=== PATIENT | male | born 1975 | race Caucasian/White ===

== ENCOUNTER → 2021-09-28 | Outpatient (CLI) | payer BC, OTHER ==
--- NOTE | 2021-09-28 16:55 | BD ---
EXAMINATION TYPE: Axial Bone Density DATE OF EXAM: 09/28/2021 CLINICAL HISTORY: 46 year old Male. ICD-10 CODE: Q98.4 Klinefelter syndrome, unspecified Height: 74 Weight: 172.8 FRAX RISK QUESTIONS: Alcohol (3 or more units per day): no Family History (Parent hip fracture): no Glucocorticoids (More than 3mos): no (Ex: prednisone, prednisolone, methylprednisolone, dexamethasone, and hydrocortisone). History of Fracture in Adulthood: yes Secondary Osteoporosis: 1. Type 1 Diabetes: no 2. Hyperthyroidism: no 3. Menopause before 45: N/A 4. Malnutrition: no 5. Chronic liver disease: no Rheumatoid Arthritis: no Current Tobacco Use: yes RISK FACTORS HISTORY OF: Surgery to Spine/Hip(right/left)/Wrist (right/left): no Family History of Osteoporosis: no Active: yes Diet low in dairy products/other sources of calcium: yes Lost more than 2 inches in height since high school: no MEDICATIONS: Additional History: EXAM MEASUREMENTS: Bone mineral densitometry was performed using the [employer] System. Bone mineral density as measured about the Lumbar spine is: ----- L1-L4(G/cm2): 1.175 T Score Values are as follows: ----- L1: -1.2 ----- L2: 0.6 ----- L3: 1.3 ----- L4: -0.9 ----- L1-L4: 0.0 Bone mineral density : BASELINE Bone mineral density about the R hip (g/cm2): 0.879 Bone mineral density about the L hip (g/cm2): 0.899 T Score values are as follows: -----R Neck: -1.1 -----L Neck: -1.0 -----R Total: -1.2 -----L Total: -1.0 Bone mineral density : BASELINE FRAX%s: The graph provided illustrates a 4.9% chance for a major osteoporotic fx and a 0.7% chance fo r the hips probability for fx in 10 years time. IMPRESSION: Z scores are utilized due to the patient being a 46-year-old male. Z score values > -2.0 indicate juliana t bone mineral density is within the expected range for patient's age.
== END | disposition home or self-care (01) ==
LOC: RADBDWWP 09:58
PROVIDERS: ATTEND Family Medicine
DX: Q98.4 Klinefelter syndrome, unspecified (principal); M85.89 Other specified disorders of bone density and structure, multiple sites
CPT/HCPCS: 77080

== ENCOUNTER 2022-08-04 21:49 | Emergency (ER) | payer BC, OTHER ==
[2022-08-04 22:00] VITALS: TEMP 98.5
[2022-08-04] MEDS ORDERED: MORPHINE SULFATE 4 MG/ML SYRINGE IV STA (22:40)
[2022-08-04] MEDS ORDERED: SODIUM CHLORIDE 0.9% 500 ML 500 ML IV STA (22:40)
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
[2022-08-04 23:36] LABS: ALT 24 U/L (4-49); AST 28 U/L (17-59); African American GFR (CKD) >90 (>60 ml/min/1.73 sqM); Albumin 3.9 g/dL (3.5-5.0); Alcohol 73 mg/dL; Alkaline Phosphatase 88 U/L (38-126); Anion Gap 10 mmol/L; Blood Urea Nitrogen 15 mg/dL (9-20); Calcium 8.9 mg/dL (8.4-10.2); Carbon Dioxide 27 mmol/L (22-30); Chloride 105 mmol/L (98-107); Glucose 93 mg/dL (74-99); Non-African American GFR(CKD) >90 (>60 ml/min/1.73 sqM); Potassium 3.6 mmol/L (3.5-5.1); Sodium 142 mmol/L (137-145); Total Bilirubin 0.2 mg/dL (0.2-1.3); Total Protein 6.7 g/dL (6.3-8.2)
[2022-08-04 23:39] LABS: Appearance,Urine Clear (Clear); Basophils # (A) 0.1 k/uL (0-0.2); Basophils % (A) 0 %; Bilirubin,Urine Negative (Negative); Blood,Urine Negative (Negative); Color,Urine Light Yellow; Eosinophils # (A) 0.2 k/uL (0-0.7); Eosinophils % (A) 1 %; Glucose,Urine (UA) Negative (Negative); HCT 40.8 % (39.0-53.0); Ketones,Urine Negative (Negative); Leukocyte Esterase,Urine Negative (Negative); Lymphocytes # (A) 1.9 k/uL (1.0-4.8); Lymphocytes % (A) 12 %; MCH 31.1 pg (25.0-35.0); MCHC 34.3 g/dL (31.0-37.0); MCV 90.7 fL (80.0-100.0); Monocytes # (A) 0.7 k/uL (0-1.0); Monocytes % (A) 5 %; Neutrophils # (A) 12.9 k/uL (1.3-7.7); Neutrophils % (A) 81 %; Nitrite,Urine Negative (Negative); Platelet Count 285 k/uL (150-450); Protein,Urine Negative (Negative); RDW 13.7 % (11.5-15.5); Specific Gravity,Urine 1.008 (1.001-1.035); Urobilinogen,Urine <2.0 mg/dL (<2.0)
--- NOTE | 2022-08-05 00:21 | XR ---
EXAM: XR Chest, 1 View CLINICAL HISTORY: ITS.REASON XR Reason: fall injury TECHNIQUE: Frontal view of the chest. COMPARISON: No previous studies. FINDINGS: Lungs: Unremarkable. No consolidative change. Pleural space: Unremarkable. No pneumothorax. No pleural effusions. Heart: Unremarkable. No cardiomegaly. Mediastinum: Cardiomediastinal silhouette unremarkable. Bones/joints: Dextroscoliosis of the thoracic spine. Osseous structures and soft tissues are unremarkable. Other findings: Hypoaeration. IMPRESSION: 1. No active disease. 2. No consolidative change. 3. No pleural effusions. 4. No pneumothorax.
--- NOTE | 2022-08-05 00:23 | XR ---
EXAM: XR Right Shoulder Complete, 2 or More Views CLINICAL HISTORY: ITS.REASON XR Reason: fall injury TECHNIQUE: Two or more views of the right shoulder. COMPARISON: No previous studies. FINDINGS: Bones/joints: Right acromioclavicular joint is unremarkable. Right shoulder joint is intact. No acute fracture, dislocation, or destructive process. Soft tissues: The soft tissues and regional ribs are unremarkable. IMPRESSION: 1. No acute fracture or dislocation. 2. If there is concern for rotator cuff tendinopathy, MRI imaging should be performed.
--- NOTE | 2022-08-05 00:30 | CT ---
EXAM: CT Head Without Intravenous Contrast CLINICAL HISTORY: ITS.REASON CT Reason: fall injury TECHNIQUE: Axial computed tomography images of the head/brain without intravenous contrast. CTDI is 45.2 mGy and DLP is 1093.5 mGy-cm. This CT exam was performed using one or more of the following dose reduction techniques: automated exposure control, adjustment of the mA and/or kV according to patient size, and/or use of iterative reconstruction technique. COMPARISON: No previous studies. FINDINGS: Brain: Unremarkable. No hemorrhage. No significant white matter disease. No abnormal extra-axial collection is noted. Midline shift: Midline anatomy is unremarkable. Ventricles: The ventricular system is age appropriate. Bones/joints: The calvarium is within normal limits. No acute fracture. Soft tissues: Unremarkable. Sinuses: Mild to moderate chronic right maxillary sinusitis. Visualized sinuses are unremarkable. Mastoid air cells: Mastoid air cells are well pneumatized. IMPRESSION: 1. No acute intracranial pathology is noted. 2. If there is concern for etiology such as early acute lacunar infarcts, MRI imaging of the brain with diffusion-weighted sequences should be performed. EXAM: CT Cervical Spine Without Intravenous Contrast CLINICAL HISTORY: ITS.REASON CT Reason: fall injury TECHNIQUE: Axial computed tomography images of the cervical spine without intravenous contrast. CTDI is 11.6 mGy and DLP is 359.3 mGy-cm. This CT exam was performed using one or more of the following dose reduction techniques: automated exposure control, adjustment of the mA and/or kV according to patient size, and/or use of iterative reconstruction technique. COMPARISON: No previous studies. FINDINGS: Vertebrae: Dextroscoliosis. There is straightening and reversal of the curvature of the cervical spine suggestive of muscle spasm. Cervical and visualized thoracic vertebral bodies are maintained in height. There is are normal relationship of C1 and C2. Transaxial images of the cervical spine reveals mild to moderate posterior facet hypertrophy. No acute fracture. Discs/spinal canal/neural foramina: Mild degenerative disc disease. No spinal canal stenosis. Other bones/joints: There is a nondisplaced fracture of the medial aspect of the left occipital condyle seen on series 303 image 38. Soft tissues: Paraspinal and regional soft tissues are unremarkable. Lung apices: COPD. IMPRESSION: 1. There is an acute nondisplaced fracture of the medial aspect the left occipital condyle seen on series 303 image 38. 2. Normal alignment of the cervical spine. 3. Degenerative disc disease. 4. No acute injury to the cervical spine. 5. COPD. <MYCVCSECTION> Communications: 08/05/22 00:32 Call Doctor Regarding Above results, called Dr. Bryant on 08/05 00:31 (-04:00)
[2022-08-05] MEDS ORDERED: HYDROmorphone 1 MG/ML 1 ML SYRINGE IVP STA ×2 (01:18→03:36)
[2022-08-05 02:47] VITALS: RESP 16
[2022-08-05 04:23] VITALS: BP 157/79; PULSE 77
== END 2022-08-05 04:44 | disposition other institution (70) ==
LOC: EC 21:49
DX: S02.11BA Type I occipital condyle fracture, left side, initial encounter for closed fracture (principal); S01.111A Laceration without foreign body of right eyelid and periocular area, initial encounter; J45.909 Unspecified asthma, uncomplicated; F17.200 Nicotine dependence, unspecified, uncomplicated; Z20.822 Contact with and (suspected) exposure to COVID-19; V29.99XA Rider (driver) (passenger) of other motorcycle injured in unspecified traffic accident, initial encounter; Y92.410 Unspecified street and highway as the place of occurrence of the external cause
CPT/HCPCS: 36415; 93005; 80053; 85025; 81003; 80320; 87636; 73030; 71045; 72125; 70450; 99291; 96374; 96375; 96376; J2270; J1170

== ENCOUNTER → 2023-02-18 | Outpatient (CLI) | payer BC, OTHER ==
--- NOTE | 2023-02-18 12:00 | P.SLEEP ---
History of Present Illness DATE: 02/18/2023 CONSULTATION/NEW PATIENT EVALUATION HISTORY OF PRESENT ILLNESS/SLEEP-WAKE EVALUATION: 48-year-old gentleman had been evaluated in the sleep center for possible obstructive sleep apnea hypopnea syndrome and significant excessive daytime sleepiness. Sleep study 12 years ago was borderline according to patient. SLEEP SCHEDULE: Usually sleep schedule from 11 PM to 67 AM 7 days a week. FALLING ASLEEP: No problems with falling asleep. DURING SLEEP: Patient has loud snoring, wakes up from sleep 2 times with one episode of nocturia No history of hypnogogical hallucinations, sleep paralysis, or cataplexy. Positive history of restless leg symptoms, sleep talking and grinding teeth DURING THE DAY/WAKE STATE: In the morning patient wake up tired, has difficulties to pay attention, falling asleep during the day, has problems with memory, concentration, depression, sexual dysfunction. Jefferson sleepiness scale is in very high range of 17. Patient takes up to 4 naps during the day. PAST MEDICAL HISTORY: Klinefelter syndrome, asthma, arthritis, depression. PAST SURGICAL HISTORY: Bilateral treatment of carpal tunnel syndrome, right ACL surgical treatment. MEDICATIONS: Of Abilify 2 mg once a day, Lamictal 100 mg 2 tablets once a day, venlafaxine 100 mg once a day, vitamin B12, testosterone once a week, epi pen. SOCIAL HISTORY: Positive history of smoking for about 20 years slightly less than 1 pack a day, quit 5 months ago, alcohol consumption occasional. FAMILY HISTORY: Hyperlipidemia. REVIEW OF SYSTEMS: Loud snoring, multiple awakenings from sleep, significant excessive daytime sleepiness. No fevers. No double vision. No recent chest pain. No shortness of breath. No abdominal pain. No bleeding episodes. No blood in urine. No seizure episodes. PHYSICAL EXAMINATION: GENERAL: A pleasant patient without any distress. VITAL SIGNS: BP 148/90, HR 78, RR 12, weight 213.8 pounds, height 6 foot three quarters inches, body mass index 28.4. HEENT: PERRLA, EOMI. Evaluation of oropharynx showed tongue protrudes midline, low position of soft palate Mallampati 3. NECK: Supple. No JVD. Thyroid is not palpable. 15.5 inches in circumference. LUNGS: Clear to percussion and to auscultation. Good air exchange. No wheezing or rhonchi. HEART: S1, S2 regular. No murmurs, gallops or rubs. ABDOMEN: Soft and nontender. Bowel sounds are present. No organomegaly appreciated. EXTREMITIES: No clubbing or cyanosis. MOLDER FLOOR: Awake, alert, and oriented x3. Cranial nerves 2 to 7 intact. There is no fasciculation or atrophy noted. No focal deficits observed. ASSESSMENT: 1. Loud snoring, awakenings from sleep, sleepiness during the day, low position of soft palate Mallampati 3. Possible obstructive sleep apnea hypopnea syndrome. 2. Significant excessive daytime sleepiness with Jefferson Sleepiness Scale 17 dictated necessity to include narcolepsy and idiopathic hypersomnia in differential diagnosis. 3. Klinefelter syndrome. 4. Asthma. 5 arthritis. 6 . Depression. 7. ALLERGY. PLAN: 1. Home sleep apnea test for evaluation of patient's breathing during sleep. Multiple sleep latency test if sleep study will be negative for obstructive sleep apnea hypopnea syndrome. 2. Following plan after reading sleep study. 3. Preferable position during sleep on the side. 4. No driving if patient feels any sleepiness. Patient is aware of civil and criminal liability for unsafe driving. 5. Sleep hygiene with regular sleep time for at least 7.5-8 hours. Thank you very much for referring this patient for consultation. Sincerely, Praveen Guerra MD, PhD, FAASM. Diplomat of [employer], Sleep Medicine Board by [employer] [facility] [place] Past Medical History Past Medical History: Asthma Additional Past Medical History / Comment(s): ADHD History of Any Multi-Drug Resistant Organisms: None Reported Past Surgical History: Unable to Obtain Past Psychological History: Bipolar, Depression Smoking Status: Current every day smoker Past Alcohol Use History: Abuse Medications and Allergies Allergies Allergy/AdvReac Type Severity Reaction Status Date / Time No Known Allergies Allergy Verified 08/04/22 22:43 Sleep Note - Sleep Note Sleep Note: Temperature: Pulse Rate: Respiratory Rate: Blood Pressure: SpO2: Height: Weight: BMI: Neck Circumference:
== END ==
LOC: 3 N SLEEP 10:48
PROVIDERS: ATTEND Internal Medicine
DX: R06.83 Snoring (principal); Q98.4 Klinefelter syndrome, unspecified; J45.909 Unspecified asthma, uncomplicated; F32.A Depression, unspecified; M19.90 Unspecified osteoarthritis, unspecified site; Z87.891 Personal history of nicotine dependence
CPT/HCPCS: 99211

== ENCOUNTER → 2023-03-11 | Outpatient (CLI) | payer BC, OTHER ==
--- NOTE | 2023-03-13 12:31 | P.PCN ---
Description of Procedure: CLINICAL: A home sleep apnea test has been done for confirmation of possible obstructive sleep apnea-hypopnea syndrome. DESCRIPTION OF PROCEDURE: RESULTS: Recording time was 7 hours 14 minutes. Evaluation time was 7 hours 2 minutes. Evaluation time is sufficient for making conclusion about results of the test. Raw data of sleep recording has been reviewed and is adequate. Respiratory channel showed 1 apneas and 93 hypopneas. Apnea-hypopnea index was 13.4 per hour. Pulse rate in the range between minimum 52, maximum 121, average 69 by computer calculation. Lowest desaturation was 82%. IMPRESSION: 1. Obstructive Sleep Apnea Hypopnea Syndrome with symptoms of significant excessive daytime sleepiness [place] sleepiness scale is 17. Please see other impressions from consultation. PLAN: 1. The patient will be started on auto-PAP treatment for correction of respiratory abnormallities during sleep. 2. I will see patient for follow up visit to discuss results of the test, evaluate clinical response on treatment with PAP therapy and make any necessary adjustments related to mask fitting, pressure, and humidification. 3. Watching weight. 4. Sleep hygiene with regular time in bed for at least 8 hours. 5. No driving if feeling any sleepiness. Thank you very much for allowing me to participate in the management of your patient. Sincerely, Praveen Guerra MD, PhD, FAASM Diplomat of [place] [employer] Sleep Medicine Board of [place] of [employer] Medicine House Player of [facility] [place]
== END ==
LOC: 3 N SLEEP 10:45
PROVIDERS: ATTEND Internal Medicine
DX: G47.33 Obstructive sleep apnea (adult) (pediatric) (principal); G47.10 Hypersomnia, unspecified; Z99.89 Dependence on other enabling machines and devices

== ENCOUNTER → 2023-07-03 | Outpatient (CLI) | payer BC, OTHER ==
[2023-07-03 16:06] VITALS: BP 144/80; PULSE 75; RESP 16
--- NOTE | 2023-07-03 17:10 | P.PN ---
Subjective DATE: 07/03/2023 FOLLOW UP VISIT. Patient with obstructive sleep apnea hypopnea syndrome return to sleep center for follow-up visit. Recently patient had sleep study which documented obstructive sleep apnea hypopnea syndrome. Patient was initiated on PAP therapy and today is first visit after treatment was started. Patient was able to use PAP equipment every night for the whole night. The patient does not have significant problems with the mask, PAP pressure and humidification. [place] sleepiness scale is in very high range of 20. I checked information from PAP unit. PAP unit pressure 5-14, average 11.1 cm H2O. Usage is 77% and 57% for more then 4 hours, average 5 hours per night. Leak is 4.1 l/m, which is in acceptable range. Apnea Hypopnea Index is 2.2, which is normal. MEDICATIONS:1. Venlafaxine 2. Abilify 2 mg once a day 3. Lamictal 100 mg once a day 4. Pepcid 20 mg once a day 5. Prednisone 10 mg once a day 6. Testosterone 100 mg once a week During physical exam: GENERAL: A pleasant patient without any distress. VITAL SIGNS: Please see below. HEENT: PERRLA, EOMI.low position of soft palate, [place] 3. NECK: Supple. No JVD. LUNGS: Clear to percussion and to auscultation. Good air exchange. No wheezing or rhonchi. HEART: S1, S2 regular. ABDOMEN: Soft and nontender.[] EXTREMITIES: No clubbing or cyanosis. RENDERING EQUIPMENT TENDER: Awake, alert, and oriented x3. No focal deficit. I teached patient about position of CPAP unit and adjustments of humidity and temperature in the tube. Impressions: 1. Obstructive sleep apnea-hypopnea syndrome. Patient demonstrated borderline compliance with treatment, benefiting from treatment. 2. Patient continued to have sleepiness during the day, but sleep time at night slightly short. 3. Klinefelter syndrome. 4. Asthma. 5. Depression. 6. Arthritis. 7. Allergy. Plan: 1. Continue using PAP equipment every night for the whole night. 2. To change air filter at least 1-2 times per month. 3. PAP unit should stay lower then position of the head. 4. Advised patient to remove all remaining water from humidifier canister daily and make it dry after each usage. Refill canister with fresh distilled water before each usage. 5. Sleep hygiene with regular time in bed for at least 8 hours. 6. Precautions related to driving. No driving if feel any sleepiness. 7. I will maintain prescription for PAP supplies including mask, tube, filters. 8. Follow up visit in 4 months or earlier if patient has any problems. 9. Watching weight. 10. We will consider multiple sleep latency test, if no improvements related to alertness while patient increased time in bed to 7.5 hours Thank you very much for allowing me to participate in the management of your patient. Praveen Guerra MD, PhD, FAASM. Diplomat of [place] [employer], Sleep Medicine Board by [place] [employer] It Support Consultant of [facility] [place] Objective - Vital Signs Vital signs: Vital Signs Temp Pulse 75 07/03/23 16:02 Resp 16 07/03/23 16:02 BP 144/80 07/03/23 16:02 Pulse Ox 97 07/03/23 16:02 FiO2
== END ==
LOC: 3 N SLEEP 15:31
PROVIDERS: ATTEND Internal Medicine
DX: G47.33 Obstructive sleep apnea (adult) (pediatric) (principal); G47.10 Hypersomnia, unspecified; Q98.4 Klinefelter syndrome, unspecified; J45.909 Unspecified asthma, uncomplicated; F32.A Depression, unspecified; M19.90 Unspecified osteoarthritis, unspecified site; Z91.09 Other allergy status, other than to drugs and biological substances; Z99.89 Dependence on other enabling machines and devices; Z79.899 Other long term (current) drug therapy
CPT/HCPCS: 99212

== ENCOUNTER 2023-11-17 11:47 | Emergency (ER) | payer BC, OTHER ==
--- NOTE | 2023-11-17 12:05 | ED ---
Extremity Problem HPI - General Chief complaint: Extremity Problem,Nontraumatic Stated complaint: R ankle swelling/pain Time Seen by Provider: 11/17/23 12:01 Source: patient, RN notes reviewed Mode of arrival: ambulatory Limitations: no limitations - History of Present Illness Initial comments: 48-year-old male presents emergency department chief complaint of right lower extremity swelling over the past few weeks. Patient states that he had an ultrasound completed outpatient last week that was negative for a DVT of the right lower extremity. Previous ACL tear repair approximately 2 years ago on the right knee. Patient is ambulatory and is being worked up outpatient for lower extremity swelling. Was informed by his PCP juliana the is scheudled to have an EEG and EKG completed. He was prescribed Lasix on that was sent to [facility] to the rehabilitation center that he has at. Patient is concerned that he has not been on his medications yet and is requesting refills of his medications he was able to take him back to his rehabilitation center - Related Data Home Medications Medication Instructions Recorded Confirmed ARIPiprazole [Abilify] 2 mg PO DAILY 07/03/23 07/03/23 Famotidine [Pepcid] 20 mg PO BID 07/03/23 07/03/23 Testosterone Enanthate [Xyosted] 100 mg SQ WEEKLY 07/03/23 07/03/23 Venlafaxine HCl ER [Effexor Xr] 150 mg PO DAILY 07/03/23 07/03/23 lamoTRIgine [LaMICtal] 100 mg PO DAILY 07/03/23 07/03/23 predniSONE 10 mg PO DAILY 07/03/23 07/03/23 Previous Rx's Medication Instructions Recorded Furosemide [Lasix] 20 mg PO DAILY 7 Days #7 tab 11/17/23 Allergies Allergy/AdvReac Type Severity Reaction Status Date / Time No Known Allergies Allergy Verified 08/04/22 22:43 Review of Systems ROS Statement: Those systems with pertinent positive or pertinent negative responses have been documented in the HPI. ROS Other: All systems not noted in ROS Statement are negative. Past Medical History Past Medical History: Asthma, GERD/Reflux Additional Past Medical History / Comment(s): ADHD History of Any Multi-Drug Resistant Organisms: None Reported Past Surgical History: Unable to Obtain Past Psychological History: Bipolar, Depression Smoking Status: Vaper Past Alcohol Use History: None Reported Past Drug Use History: None Reported General Exam - General Exam Comments Initial Comments: Visual Physical Exam Vital signs reviewed General: Well-appearing, nontoxic, no acute distress. Head: Normocephalic, atraumatic Eyes: PERRLA, EOMI ENT: Airway patent Chest: Nonlabored breathing Skin: No visual rash, normal skin tone Neuro: Alert and oriented 3 Musculoskeletal: No gross abnormalities Limitations: no limitations General appearance: alert, in no apparent distress Head exam: Present: atraumatic, normocephalic, normal inspection ENT exam: Present: normal exam, mucous membranes moist Respiratory exam: Present: normal lung sounds bilaterally. Absent: respiratory distress, wheezes, rales, rhonchi, stridor Cardiovascular Exam: Present: regular rate, normal rhythm, normal heart sounds. Absent: systolic murmur, diastolic murmur, rubs, gallop, clicks GI/Abdominal exam: Present: soft, normal bowel sounds. Absent: distended, tenderness, guarding, rebound, rigid Right Lower Leg exam: Present: full ROM, swelling. Absent: tenderness, abrasion, laceration Foot/Toe exam: Present: normal inspection, full ROM. Absent: tenderness, swelling, abrasion Neurovascular tendon exam: Absent: no vascular compromise, abnormal cap refill Gait: observed and normal Back exam: Present: normal inspection Skin exam: Present: warm, dry, intact, normal color. Absent: rash Course Vital Signs 11/17/23 11/17/23 11/17/23 11:52 14:03 14:29 Temperature 97.8 F 98.1 F 98.1 F Pulse Rate 87 69 68 Respiratory 16 18 18 Rate Blood Pressure 148/92 147/91 145/90 O2 Sat by Pulse 99 99 99 Oximetry Medical Decision Making - Medical Decision Making Was pt. sent in by a medical professional or institution (, PA, CHILD CENTER ASSISTANT, urgent care, hospital, or custodial...) When possible be specific @ -No Did you speak to anyone other than the patient for history (EMS, parent, family, police, friend...)? What history was obtained from this source @ -I spoke to the patient's at bedside states the patient was prescribed diuretic therapy. From a care provider apparently has been unable to start this medication due to the prescription being sent to [facility] that is a send out Did you review nursing and triage notes (agree or disagree)? Why? @ -I reviewed and agree with nursing and triage notes Were old charts reviewed (outside hosp., previous admission, EMS record, old EKG, old radiological studies, urgent care reports/EKG's, custodial records)? Report findings @ -No old charts were reviewed Differential Diagnosis (chest pain, altered mental status, abdominal pain women, abdominal pain men, vaginal bleeding, weakness, fever, dyspnea, syncope, headache, dizziness, GI bleed, back pain, seizure, CVA, palpatations, mental health, musculoskeletal)? @ -Differential Musculoskeletal Muscular strain, contusion, ligament sprain, fracture, arthritis, septic arthritis, bursitis, cellulitis, muscle spasm, nerve compression, DVT, arterial occlusion, herpes zoster, electrolyte abnormality, tumor.... This is not meant to be in all inclusive list EKG interpreted by me (3pts min.). @ -Completed at 1306 sinus rhythm with a ventricular rate of 66, parable 159, QTc 363. No acute signs of ischemia. X-rays interpreted by me (1pt min.). @ -None done CT interpreted by me (1pt min.). @ -None done U/S interpreted by me (1pt. min.). @ -None done What testing was considered but not performed or refused? (CT, X-rays, U/S, labs)? Why? @ -Ultrasound x-rays were considered but deferred. Patient had a recent duplex ultrasound of the right lower extremity that was negative for DVT therefore ultrasound is deferred at this time. Additionally physical examination there is minimal clinical concern for osseous abnormality as patient has extremity swelling and no evidence of recent trauma or injuries therefore there is minimal clinical concern for bony abnormality. Patient agree with deferring x-rays at this time. What meds were considered but not given or refused? Why? @ -None Did you discuss the management of the patient with other professionals (professionals i.e. Dr., PA, CHILD CENTER ASSISTANT, lab, RT, psych nurse, home health care social worker, commercial loan processor, teacher, operational intelligence officer, continuous pillowcase cutter)? Give summary @ -No Was smoking cessation discussed for >3mins.? @ -No Was critical care preformed (if so, how long)? @ -No Were there social determinants of health that impacted care today? How? (Homelessness, low income, unemployed, alcoholism, drug addiction, transportation, low edu. Level, literacy, decrease access to med. care, halfway, rehab)? @ -No Was there de-escalation of care discussed even if they declined (Discuss DNR or withdrawal of care, Hospice)? DNR status @ -No What co-morbidities impacted this encounter? (DM, HTN, Smoking, COPD, CAD, Cancer, CVA, ARF, Chemo, Hep., AIDS, mental health diagnosis, sleep apnea, morbid obesity)? @ -None Was patient admitted / discharged? Hospital course, mention meds given and route, prescriptions, significant lab abnormalities, going to OR and other pertinent info. @ -Discharge. 48-year-old male with right lower extremity swelling. On physical examination patient is resting comfortably no signs of acute distress. EKG reveals sinus rhythm. There is edema to the right lower extremity that is nonpitting, patient is neurovascularly intact before range of motion. X-rays and ultrasound deferred at this time. Patient will be dose of diuretics emergency department and prescription sent to [facility] pharmacy that he is able to clam picker and bring with him to rehabilitation center. Patient does have appointment scheduled with primary care provider within the next few weeks for further evaluation and ongoing treatment of right lower extremity edema. All questions answered at bedside and strict return parameters sonja with the patient he is verbalized understanding. Discussed with Dr. Marino Acute, or Chronic, or Acute on Chronic? @ -Acute Uncomplicated (without systemic symptoms) or Complicated (systemic symptoms)? @ -Uncomplicated Side effects of treatment? @ -None Exacerbation, Progression, or Severe Exacerbation] @ -No Poses a threat to life or bodily function? @ -No Disposition Clinical Impression: Edema, Swelling of lower extremity Disposition: HOME SELF-CARE Condition: Good Instructions (If sedation given, give patient instructions): Edema (ED) Additional Instructions: Return emergency room for any new or worsening symptoms. Complete full course of diuretic as prescribed. Recommend that you follow-up next week with your primary care provider for further evaluation. Continue to wear compression stockings. Prescriptions: Furosemide [Lasix] 20 mg PO DAILY 7 Days #7 tab Is patient prescribed a controlled substance at d/c from ED?: No Referrals: Karina Sweeney III, MD [Primary Care Provider] - 1-2 days Time of Disposition: 14:23
[2023-11-17 14:04] VITALS: RESP 18; TEMP 98.1
[2023-11-17] MEDS: FUROSEMIDE 20 MG TAB PO STA (14:26)
[2023-11-17 14:30] VITALS: BP 145/90; PULSE 68
== END 2023-11-17 14:44 | disposition home or self-care (01) ==
LOC: EC 11:47
DX: R22.41 Localized swelling, mass and lump, right lower limb (principal)
CPT/HCPCS: 93005; 99284

== ENCOUNTER 2024-02-02 09:51 | Emergency (ER) | payer BC, OTHER ==
[2024-02-02 10:02] VITALS: TEMP 98.8
--- NOTE | 2024-02-02 10:15 | ED ---
General Adult HPI - General Chief complaint: Abdominal Pain Stated complaint: Abdominal Pain Time Seen by Provider: 02/02/24 10:00 Source: patient, RN notes reviewed, old records reviewed Mode of arrival: ambulatory Limitations: no limitations - History of Present Illness Initial comments: This is a 49-year-old male who presents to the emergency department complaining of right-sided abdominal pain. Patient states he had a sharp pain last night and this morning he woke up and has a pain constant on the right side. The initial sharp pain was just really quick and then it went away but now the pain is there and is constant he does think coughing moving or driving in the car hitting bumps made it much worse. Patient has any nausea vomiting diarrhea. Patient has any fever chills. Patient has any previous abdominal surgery. Patient does have a history of Klinefelter syndrome. Patient denies any other symptoms at this time - Related Data Home Medications Medication Instructions Recorded Confirmed ARIPiprazole [Abilify] 2 mg PO DAILY 07/03/23 07/03/23 Famotidine [Pepcid] 20 mg PO BID 07/03/23 07/03/23 Testosterone Enanthate [Xyosted] 100 mg SQ WEEKLY 07/03/23 07/03/23 Venlafaxine HCl ER [Effexor Xr] 150 mg PO DAILY 07/03/23 07/03/23 lamoTRIgine [LaMICtal] 100 mg PO DAILY 07/03/23 07/03/23 predniSONE 10 mg PO DAILY 07/03/23 07/03/23 Previous Rx's Medication Instructions Recorded Furosemide [Lasix] 20 mg PO DAILY 7 Days #7 tab 11/17/23 Allergies Allergy/AdvReac Type Severity Reaction Status Date / Time No Known Allergies Allergy Verified 02/02/24 09:58 Review of Systems ROS Statement: Those systems with pertinent positive or pertinent negative responses have been documented in the HPI. ROS Other: All systems not noted in ROS Statement are negative. Past Medical History Past Medical History: Asthma, GERD/Reflux Additional Past Medical History / Comment(s): Kleinfelter Syndrome, Neuropathy, ADHD History of Any Multi-Drug Resistant Organisms: None Reported Past Surgical History: Unable to Obtain Additional Past Surgical History / Comment(s): L and R tendonitis release, L and R carpal tunnel release. L elbow fx with hardware and removal, R torn ACL. Past Psychological History: ADD/ADHD, Bipolar, Depression Smoking Status: Vaper Past Alcohol Use History: None Reported Past Drug Use History: None Reported General Exam - General Exam Comments Initial Comments: GENERAL: Patient is well-developed and well-nourished. Patient is nontoxic and well- hydrated and is in mild distress. ENT: Neck is soft and supple. No significant lymphadenopathy is noted. Oropharynx is clear. Moist mucous membranes. Neck has full range of motion without eliciting any pain. EYES: The sclera were anicteric and conjunctiva were pink and moist. Extraocular movements were intact and pupils were equal round and reactive to light. Eyelids were unremarkable. PULMONARY: Unlabored respirations. Good breath sounds bilaterally. No audible rales rhonchi or wheezing was noted. CARDIOVASCULAR: There is a regular rate and rhythm without any murmurs gallops or rubs. ABDOMEN: Patient has some left mid flank pain no rebound SKIN: Skin is clear with no lesions or rashes and otherwise unremarkable. NEUROLOGIC: Patient is alert and oriented x3. Cranial nerves II through XII are grossly intact. Motor and sensory are also intact. Normal speech, volume and content. Symmetrical smile. MUSCULOSKELETAL: Normal extremities with adequate strength and full range of motion. No lower extremity swelling or edema. No calf tenderness. LYMPHATICS: No significant lymphadenopathy is noted PSYCHIATRIC: Normal psychiatric evaluation. Limitations: no limitations Course Vital Signs 02/02/24 02/02/24 02/02/24 09:58 10:01 11:01 Temperature 98.8 F Pulse Rate 79 82 65 Respiratory 20 16 20 Rate Blood Pressure 127/83 128/83 124/74 O2 Sat by Pulse 99 98 99 Oximetry Medical Decision Making - Medical Decision Making Was pt. sent in by a medical professional or institution (, PA, HEMODIALYSIS TECHNICIAN, urgent care, hospital, or assisted...) When possible be specific @ -No Did you speak to anyone other than the patient for history (EMS, parent, family, police, friend...)? What history was obtained from this source @ -No Did you review nursing and triage notes (agree or disagree)? Why? @ -I reviewed and agree with nursing and triage notes Were old charts reviewed (outside hosp., previous admission, EMS record, old EKG, old radiological studies, urgent care reports/EKG's, assisted records)? Report findings @ -No old charts were reviewed Differential Diagnosis? @ -Differential Abdominal Pain Men: Appendicitis, cholecystitis, diverticulosis, ischemic bowel, pancreatitis, hepatitis, UTI, gastroenteritis, AAA, incarcerated hernia, bowel obstruction, constipation, inflammatory bowel, hepatitis, peptic ulcer disease, splenic infarction, perforated viscus, testicular torsion, this is not meant to be an all-inclusive list EKG interpreted by me (3pts min.). @ -As above X-rays interpreted by me (1pt min.). @ -None done CT interpreted by me (1pt min.). @ -CT of the abdomen pelvis showed no acute abnormality U/S interpreted by me (1pt. min.). @ -None done What testing was considered but not performed or refused? (CT, X-rays, U/S, labs)? Why? @ -None What meds were considered but not given or refused? Why? @ -None Did you discuss the management of the patient with other professionals (professionals i.e. , PA, HEMODIALYSIS TECHNICIAN, lab, RT, psych nurse, social and political studies professor, lab analyst, teacher, first officer and flight instructor, casework supervisor)? Give summary @ -No Was smoking cessation discussed for >3mins.? @ -No Was critical care preformed (if so, how long)? @ -No Were there social determinants of health that impacted care today? How? (Homelessness, low income, unemployed, alcoholism, drug addiction, transportation, low edu. Level, literacy, decrease access to med. care, fdc, rehab)? @ -No Was there de-escalation of care discussed even if they declined (Discuss DNR or withdrawal of care, Hospice)? DNR status @ -No What co-morbidities impacted this encounter? (DM, HTN, Smoking, COPD, CAD, Cancer, CVA, ARF, Chemo, Hep., AIDS, mental health diagnosis, sleep apnea, morbid obesity)? @ -None Was patient admitted / discharged? Hospital course, mention meds given and route, prescriptions, significant lab abnormalities, going to OR and other pertinent info. @ -Patient received Toradol for pain it did help a little but the patient still had some left foot pain. There was no point tenderness and patient will follow- up with a primary medical care doctor or return if symptoms are worse. Undiagnosed new problem with uncertain prognosis? @ -No Drug Therapy requiring intensive monitoring for toxicity (Heparin, Nitro, Insulin, Cardizem)? @ -No Were any procedures done? @ -No Diagnosis/symptom? @ -Abdominal pain Acute, or Chronic, or Acute on Chronic? @ -Acute Uncomplicated (without systemic symptoms) or Complicated (systemic symptoms)? @ -Complicated Side effects of treatment? @ -No Exacerbation, Progression, or Severe Exacerbation? @ -No Poses a threat to life or bodily function? How? (Chest pain, [place], [place], pneumonia, PE, COPD, DKA, ARF, appy, cholecystitis, CVA, Diverticulitis, Homicidal, Suicidal, threat to staff... and all critical care pts) @ -No - Lab Data Result diagrams: 02/02/24 10:12 02/02/24 10:12 Lab Results 02/02/24 02/02/24 Range/Units 10:12 10:12 WBC 6.3 (3.8-10.6) k/uL RBC 5.74 (4.30-5.90) m/uL Hgb 16.9 (13.0-17.5) gm/dL Hct 51.0 (39.0-53.0) % MCV 88.8 (80.0-100.0) fL MCH 29.4 (25.0-35.0) pg MCHC 33.1 (31.0-37.0) g/dL RDW 12.9 (11.5-15.5) % Plt Count 270 (150-450) k/uL MPV 6.5 Neutrophils % 55 % Lymphocytes % 31 % Monocytes % 7 % Eosinophils % 3 % Basophils % 1 % Neutrophils # 3.5 (1.3-7.7) k/uL Lymphocytes # 2.0 (1.0-4.8) k/uL Monocytes # 0.5 (0-1.0) k/uL Eosinophils # 0.2 (0-0.7) k/uL Basophils # 0.1 (0-0.2) k/uL Sodium 139 (137-145) mmol/L Potassium 4.5 (3.5-5.1) mmol/L Chloride 106 (98-107) mmol/L Carbon Dioxide 26 (22-30) mmol/L Anion Gap 7 mmol/L BUN 13 (9-20) mg/dL Creatinine 0.95 (0.66-1.25) mg/dL Est GFR (CKD-EPI)AfAm >90 (>60 ml/min/1.73 sqM) Est GFR (CKD-EPI)NonAf >90 (>60 ml/min/1.73 sqM) Glucose 123 H (74-99) mg/dL Calcium 9.6 (8.4-10.2) mg/dL Total Bilirubin 0.5 (0.2-1.3) mg/dL AST 33 (17-59) U/L ALT 50 H (4-49) U/L Alkaline Phosphatase 61 (38-126) U/L Total Protein 7.0 (6.3-8.2) g/dL Albumin 4.2 (3.5-5.0) g/dL Amylase 99 (30-110) U/L Lipase 165 (23-300) U/L Disposition Clinical Impression: Abdominal pain Disposition: HOME SELF-CARE Instructions (If sedation given, give patient instructions): Abdominal Pain (ED) Is patient prescribed a controlled substance at d/c from ED?: No Referrals: Karina Sweeney III, MD [Primary Care Provider] - 1-2 days Time of Disposition: 11:56
[2024-02-02] MEDS: KETOROLAC 15 MG/ML 1 ML VIAL IVP STA (10:25)
[2024-02-02 10:38] LABS: Basophils # (A) 0.1 k/uL (0-0.2); Basophils % (A) 1 %; Eosinophils # (A) 0.2 k/uL (0-0.7); Eosinophils % (A) 3 %; HGB 16.9 gm/dL (13.0-17.5); Lymphocytes % (A) 31 %; MCH 29.4 pg (25.0-35.0); MCHC 33.1 g/dL (31.0-37.0); MCV 88.8 fL (80.0-100.0); Mean Platelet Volume 6.5; Monocytes # (A) 0.5 k/uL (0-1.0); Monocytes % (A) 7 %; Neutrophils # (A) 3.5 k/uL (1.3-7.7); Neutrophils % (A) 55 %; Platelet Count 270 k/uL (150-450); RBC 5.74 m/uL (4.30-5.90); RDW 12.9 % (11.5-15.5); WBC 6.3 k/uL (3.8-10.6)
[2024-02-02 10:49] LABS: ALT 50 U/L (4-49); AST 33 U/L (17-59); African American GFR (CKD) >90 (>60 ml/min/1.73 sqM); Albumin 4.2 g/dL (3.5-5.0); Alkaline Phosphatase 61 U/L (38-126); Amylase 99 U/L (30-110); Anion Gap 7 mmol/L; Blood Urea Nitrogen 13 mg/dL (9-20); Calcium 9.6 mg/dL (8.4-10.2); Carbon Dioxide 26 mmol/L (22-30); Chloride 106 mmol/L (98-107); Glucose 123 mg/dL (74-99); Lipase 165 U/L (23-300); Non-African American GFR(CKD) >90 (>60 ml/min/1.73 sqM); Potassium 4.5 mmol/L (3.5-5.1); Sodium 139 mmol/L (137-145); Total Bilirubin 0.5 mg/dL (0.2-1.3)
--- NOTE | 2024-02-02 11:19 | CT ---
EXAMINATION TYPE: CT abdomen pelvis wo con DATE OF EXAM: 02/02/2024 11:08 AM COMPARISON: None CLINICAL INDICATION: Male, 49 years old with history of abdominal pain; Abdominal pain TECHNIQUE: Axial CT abdomen pelvis wo con;Sagittal and coronal reformats were created on a separate workstation. Contrast used: mL of , (none if empty) Oral contrast used: without Oral Contrast (none if empty) CT DLP: 918.7 mGycm, Automated exposure control for dose reduction was used. FINDINGS: LOWER CHEST: Unremarkable ABDOMEN LIVER: Unremarkable GALLBLADDER AND BILE DUCTS: Unremarkable. PANCREAS: Unremarkable. SPLEEN: Unremarkable. ADRENAL GLANDS: Unremarkable. KIDNEYS AND URETERS: No evidence of hydronephrosis or or obstructing renal calculus. Nonobstructing l eft 3 mm calculus. The ureters are unremarkable. PELVIS BLADDER: No evidence for wall thickening or mass given limitations of exam. REPRODUCTIVE: Unremarkable. ABDOMEN & PELVIS STOMACH AND BOWEL: No evidence of bowel obstruction. The appendix is normal. PERITONEUM/RETROPERITONEUM: No evidence of pneumoperitoneum or free fluid. VASCULATURE: Mild atherosclerotic calcifications are present throughout the abdominal aorta and its b ranches. No evidence of aortic aneurysm. MUSCULOSKELETAL: No acute osseous abnormalities. Mild disc degeneration changes are present throughou t the thoracolumbar spine. LYMPH NODES: No gross evidence for lymphadenopathy. SOFT TISSUE/ABDOMINAL WALL: Left fat-containing inguinal hernia. IMPRESSION: 1. No evidence for acute abdominal process. The appendix is normal. 2. Nonobstructing left renal calculi. [facility], , 02/02/2024 11:17 AM
[2024-02-02 11:33] VITALS: BP 124/74
[2024-02-02 12:11] VITALS: PULSE 68; RESP 16
== END 2024-02-02 12:10 | disposition home or self-care (01) ==
LOC: EC 09:51
DX: N20.0 Calculus of kidney (principal); F17.290 Nicotine dependence, other tobacco product, uncomplicated
CPT/HCPCS: 36415; 80053; 82150; 83690; 85025; 74176; 99284; 96374; J1885

== ENCOUNTER 2024-08-20 09:28 | Day surgery (SDC) | payer BC, OTHER ==
[2024-08-19 11:36] VITALS: BMI 29.5
[2024-08-20] MEDS: IV FLUID CONTINUATION 1,000 ML IV ONE (09:44)
[2024-08-20 09:51] VITALS: RESP 16; TEMP 98.4
[2024-08-20] MEDS: LACTATED RINGERS 1,000 ML IV SCH (10:12)
[2024-08-20] MEDS ORDERED: PROPOFOL 10 MG/ML 20 ML VIAL IV ONE (10:17)
[2024-08-20] MEDS ORDERED: LIDOCAINE 1% INJ 10MG/ML (20 ML MDV) ONE (10:17)
--- NOTE | 2024-08-20 10:42 | P.PCN ---
Date of Procedure: 08/20/24 Preoperative Diagnosis: Screening Postoperative Diagnosis: 2 rectal polyps 2 sigmoid colon polyps Transverse colon polyp Procedure(s) Performed: Colonoscopy with hot snare polypectomy Anesthesia: MAC Surgeon: Chayo Sutton Pathology: other (2 rectal polyps, 2 sigmoid colon polyps, transverse colon) Condition: stable Disposition: same day Indications for Procedure: 49-year-old male presents today for screening colonoscopy. No blood in his stool. No family history of colon cancer. Risks, benefits and alternatives were provided to the patient. All questions answered prior to attending the endoscopy suite. Operative Findings: 2 rectal polyps 2 sigmoid colon polyps Transverse colon polyp Description of Procedure: The patient was brought to the endoscopy suite and placed in left lateral decubitus position and adequate sedation was achieved using conscious sedation. Digital rectal exam was performed and mild internal hemorrhoids were palpated. An endoscope was then placed in the rectum and advanced to the cecum as identified by landmarks including the appendiceal orifice and the ileocecal valve. The prep was good. The colonoscope was then slowly withdrawn, examining for any mucosal abnormalities. The cecum, ascending, transverse, descending and sigmoid colon were visualized adequately. There were no large neoplastic lesions noted throughout the colon. Multiple pedunculated polyps were noted throughout the colon. One was noted in the transverse colon this was removed with hot snare polypectomy. Hemostasis maintained. 2 additional ones were noted in the sigmoid colon polyp B. These were removed with snare polypectomy. Hemostasis maintained. 2 were found in the rectum and these were also removed with hot snare polypectomy.. Hemostasis was maintained. Retroflexion was performed in the rectum and internal hemorrhoid. Excess air was removed, the colonoscope withdrawn and the procedure terminated. The patient was then transferred to the recovery unit in stable condition. Repeat colonoscopy should be performed in 2 years.
[2024-08-20 11:07] VITALS: BP 115/80; PULSE 62
== END 2024-08-20 11:31 | disposition home or self-care (01) ==
LOC: ORWHC2ENDO 09:28
PROVIDERS: ATTEND Surgery
DX: Z12.11 Encounter for screening for malignant neoplasm of colon (principal); D12.5 Benign neoplasm of sigmoid colon; D12.3 Benign neoplasm of transverse colon; K62.1 Rectal polyp
CPT/HCPCS: 88305; 45385; J2003; J2704